=== PATIENT | female | born 1950 | race Caucasian/White ===

== ENCOUNTER → 2016-10-13 | Outpatient (CLI) | payer MEDICARE, OTHER ==
--- NOTE | 2016-10-13 09:39 | XR ---
EXAMINATION TYPE: XR KUB DATE OF EXAM: 10/13/2016 9:33 AM COMPARISON: NONE HISTORY: UTI TECHNIQUE: One view abdominal series FINDINGS: The osseous structures are intact. The bowel gas pattern is nonspecific. I lateral ureteral stents a re seen. Numerous calcifications are seen in the pelvis some of which could be contained within the bladder. Hypertrophic change of the spine noted. No suspicious calcifications overlying the kidneys. Addition ally there is a 3 mm calcification adjacent to the mid aspect of the left ureteral stent which could be in the course of the ureter. Similar finding is seen overlying the right ureteral stent at the lev el of the mid sacrum. IMPRESSION: 1. Nonspecific abdomen. Bilateral ureteral stents are noted. Some of the calcifications could be con tained within the bladder. Additionally there is a 3 mm calcification adjacent to the mid aspect of t he left ureteral stent which could be in the course of the ureter. Similar finding is seen overlying the right ureteral stent at the level of the mid sacrum. .
== END ==
LOC: RADXRMAIN 09:23
PROVIDERS: ATTEND Urology
DX: N28.89 Other specified disorders of kidney and ureter (principal); Z96.0 Presence of urogenital implants
CPT/HCPCS: 74000